=== PATIENT | male | born 1940 | race Caucasian/White ===

== ENCOUNTER → 2016-07-14 | Outpatient (CLI) | payer MEDICARE, OTHER ==
[2016-07-14 13:08] LABS: BUN 10 mg/dl (7-24); EST GLOM FILT AFRICAN AMERICAN > 60 ml/min
== END | disposition home or self-care (01) ==
LOC: LAB 12:27 → CT 14:00
PROVIDERS: Family Medicine
DX: I25.10 Atherosclerotic heart disease of native coronary artery without angina pectoris (principal); J44.9 Chronic obstructive pulmonary disease, unspecified; R91.1 Solitary pulmonary nodule; J18.9 Pneumonia, unspecified organism; J84.10 Pulmonary fibrosis, unspecified; J43.8 Other emphysema

== ENCOUNTER → 2016-11-24 | Outpatient (CLI) | payer MEDICARE, OTHER | END | disposition home or self-care (01) | LOC: LAB 09:20 | DX: N42.9 Disorder of prostate, unspecified (principal) ==

== ENCOUNTER → 2017-06-08 | Outpatient (CLI) | payer MEDICARE, OTHER ==
--- NOTE | 2017-06-08 11:28 | NUR ---
PULSE OX ON R/A AT REST WAS 94%, HEART RATE 93. B/P 120/61. PT. AMBULATED ON R/A. PULSE OX DECREASED TO 88% AFTER WALKING APPRX. 2 MINUTES. HEART RATE INCREASING TO 124. PT.PLACED ON 3L FOR RECOVERY, PULSE OX INCREASING TO 96%, DECREASED TO 2LM, PULSE OX MAINTAINING 96% WHILE STANDING. HEART RATE 110, AND DECREASING. CONTINUED AMBULATION ON 2LM O2. PULSE OX WAS 94%, HEART RATE DECREASING TO 98. PT. RETURNED TO THE LOBBY, AND SITTING IN CHAIR WITH 2LM O2. PULSE OX 98% ON 2LM , HEART RATE 87, B/P 153/72 O2 REMOVED, PT RESTING IN CHAIR. PULSE OX 95 ON R/A, HEART RATE 88. DR. ROSE OFFICE CALLED WITH RESULTS.
== END | disposition home or self-care (01) ==
LOC: CP 10:21
DX: J43.9 Emphysema, unspecified (principal)